=== PATIENT | male | born 1965 | race Caucasian/White ===

== ENCOUNTER 2018-10-04 15:26 | Emergency (ER) | payer MEDICARE, OTHER ==
[~2018-10-04] VITALS: Ht 185.4 cm; Wt 79.4 kg
[2018-10-04 16:13] VITALS: BP 95/63
[2018-10-04] MEDS ORDERED: TDAP [DIPH/PERTUSSIS/TET] 0.5 ML VIAL IM ONE (17:33)
[2018-10-04] MEDS: TDAP [DIPH/PERTUSSIS/TET] 0.5 ML VIAL IM ONE (17:39)
[2018-10-04] MEDS: BACI/NEOM/POLY B OINT PKT 1 UDPKT PACKET TP ONE (19:20)
== END 2018-10-04 19:31 | disposition home or self-care (01) ==
LOC: ER 15:26
DX: S62.511A Displaced fracture of proximal phalanx of right thumb, initial encounter for closed fracture (principal); F10.10 Alcohol abuse, uncomplicated; Y90.9 Presence of alcohol in blood, level not specified; Z98.890 Other specified postprocedural states; Z88.2 Allergy status to sulfonamides; Z88.1 Allergy status to other antibiotic agents; X58.XXXA Exposure to other specified factors, initial encounter; Y93.89 Activity, other specified; Y92.89 Other specified places as the place of occurrence of the external cause; Y99.8 Other external cause status
CPT/HCPCS: 29130; 73140; 90471; 90715; 99283; A4606

== ENCOUNTER 2021-09-12 10:35 | Outpatient (CLI) | payer MEDICARE, OTHER | END 2021-09-12 23:59 | disposition home or self-care (01) | LOC: WOU 10:35 | PROVIDERS: ATTEND Specialist | DX: L89.313 Pressure ulcer of right buttock, stage 3 (principal); L89.322 Pressure ulcer of left buttock, stage 2; G82.54 Quadriplegia, C5-C7 incomplete | CPT/HCPCS: 99214; A6209; G0463 ==

== ENCOUNTER 2021-09-19 10:35 | Outpatient (CLI) | payer MEDICARE, OTHER | END 2021-09-19 23:59 | disposition home or self-care (01) | LOC: WOU 10:35 | PROVIDERS: ATTEND Specialist | DX: L89.322 Pressure ulcer of left buttock, stage 2 (principal); G82.54 Quadriplegia, C5-C7 incomplete | CPT/HCPCS: A6209; G0463 ==

== ENCOUNTER 2022-08-06 13:02 | Emergency (ER) | payer MEDICARE, OTHER ==
[~2022-08-06] VITALS: Ht 185.4 cm; Wt 81.6 kg
[2022-08-06 13:24] VITALS: BP 92/49
[2022-08-06] MEDS ORDERED: AMOX-430 PO (16:14)
[2022-08-06] MEDS ORDERED: ERYT3.5O9 LEFTEYE (16:14)
== END 2022-08-06 17:03 | disposition home or self-care (01) ==
LOC: ER 13:02
DX: H11.422 Conjunctival edema, left eye (principal); L03.213 Periorbital cellulitis; Z88.2 Allergy status to sulfonamides

== ENCOUNTER 2024-07-24 07:10 | Emergency (ER) | payer MEDICARE, OTHER ==
[~2024-07-24] VITALS: Ht 185.4 cm; Wt 81.6 kg
[~2024-07-24 07:10] MED LIST: AMOX-430 PO; ERYT3.5O9 LEFTEYE
[2024-07-24 07:29] VITALS: BP 107/67; TEMP 98.8
[2024-07-24] MEDS ORDERED: AZIT250T13 PO (09:21)
[2024-07-24 09:29] VITALS: O2SAT 97
== END 2024-07-24 09:29 | disposition home or self-care (01) ==
LOC: ER 07:10
DX: R05.9 Cough, unspecified (principal); G82.50 Quadriplegia, unspecified; Z87.440 Personal history of urinary (tract) infections; Z88.1 Allergy status to other antibiotic agents; Z88.2 Allergy status to sulfonamides; Z20.822 Contact with and (suspected) exposure to COVID-19
CPT/HCPCS: 71045-TC